=== PATIENT | female | born 1960 | race Caucasian/White ===

== ENCOUNTER 2021-04-19 19:09 | Inpatient (IN) ==
[2021-04-19 20:52] LABS: ABS Lymphocytes 0.6 10^3/ul (1.0-4.8); ABS Monocytes 0.2 10^3/ul (0-0.8); ABS Neutrophils 3.5 10^3/ul (1.5-7.7); Eosinophil % 0.5 %; Hematocrit 29 % (35-47); Hemoglobin 9.5 g/dL (12.0-16.0); Lymphocyte % 12.9 %; Mean Corpuscular HGB Conc 33 g/dL (31-36); Mean Corpuscular Hemoglobin 36 pg (27-31); Mean Corpuscular Volume 109 fL (80-97); Mean Platelet Volume 8.9 fL (7.4-10.4); Platelet Count 128 10^3/uL (150-450); Red Blood Count 2.66 10^6 /uL (3.70-4.87); Red Cell Distribution Width 18 % (10-15); White Blood Count 4.3 10^3/uL (3.5-10.8)
[2021-04-19 21:00] LABS: Albumin 2.6 g/dL (3.2-5.2); Albumin/Globulin Ratio 1.6 (1-3); Calcium 7.7 mg/dL (8.6-10.3); EGFR African American 105.4 (>60); EGFR Non-African American 87.1 (>60); Globulin 1.6 g/dL (2-4); Total Bilirubin 0.5 mg/dL (0.2-1.0); Total Protein 4.2 g/dL (6.4-8.9)
[2021-04-19 21:38] LABS: TSH Ultra Thyroid Stim Horm 1.22 mcIU/mL (0.34-5.60)
[2021-04-19 21:41] LABS: Free T4 1.78 ng/dL (0.61-1.12)
[2021-04-19] MEDS ORDERED: Vancomycin 1,000 MG in NS 0.9% 250 ml 250 ML IVPB SCH (21:48)
[2021-04-19] MEDS: KCL 20 MEQ/100 ML IVPREMIX 20 MEQ/100 ML BAG IV SCH (22:09)
[2021-04-19] MEDS ORDERED: Cefepime 2 GM IV - ED ONCE IV ONE (23:00)
[2021-04-19] MEDS ORDERED: Vancomycin per Pharmacy 1 EA NOTE FOLLOW UP SCH (23:00)
[2021-04-19] MEDS ORDERED: Vancomycin 1,000 MG - ED ONCE IVPB ONE (23:00)
[2021-04-20] MEDS: oxyCODONE SR 15 mg TAB PO SCH ×4 (00:43→20:39)
[2021-04-20] MEDS: Enoxaparin 40 MG/0.4 ML SYR SUBCUT SCH ×2 (00:44→20:41)
[2021-04-20] MEDS: KCL 20 MEQ/100 ML IVPREMIX 20 MEQ/100 ML BAG IV SCH (03:25)
[2021-04-20 06:03] LABS: ABS Lymphocytes 0.8 10^3/ul (1.0-4.8); ABS Monocytes 0.4 10^3/ul (0-0.8); ABS Neutrophils 2.6 10^3/ul (1.5-7.7); Eosinophil % 0.7 %; Hematocrit 28 % (35-47); Hemoglobin 9.1 g/dL (12.0-16.0); Lymphocyte % 20.8 %; Mean Corpuscular HGB Conc 33 g/dL (31-36); Mean Corpuscular Hemoglobin 36 pg (27-31); Mean Corpuscular Volume 109 fL (80-97); Mean Platelet Volume 8.7 fL (7.4-10.4); Platelet Count 115 10^3/uL (150-450); Red Blood Count 2.52 10^6 /uL (3.70-4.87); Red Cell Distribution Width 18 % (10-15)
[2021-04-20 06:17] LABS: Calcium 7.5 mg/dL (8.6-10.3); EGFR Non-African American 90.1 (>60); Potassium 3.6 mmol/L (3.5-5.0)
[2021-04-20 08:09] LABS: C Reactive Protein 26.9 mg/L (<8.01)
[2021-04-20] MEDS: DULoxetine DR 30 mg CAP PO SCH (10:36)
[2021-04-20] MEDS: buPROPion SR 100 mg TAB.SR PO SCH (10:37)
[2021-04-20] MEDS: Voriconazole 50 mg TAB (NF) PO SCH ×2 (10:37→20:39)
[2021-04-20] MEDS: Cefepime 2 GM in Dextrose 2 GM/50 ML BAG IV SCH (11:36)
[2021-04-20] MEDS: Vancomycin 1000 MG in NS 0.9% 250 ML IVPB SCH (15:24)
[2021-04-20 15:51] LABS: INR 1.05 (0.86-1.15)
[2021-04-20] MEDS ORDERED: Prochlorperazine 5 mg/ml 2 ml VIAL (10 mg) IV PRN (21:17)
[2021-04-21] MEDS: Cefepime 2 GM in Dextrose 2 GM/50 ML BAG IV SCH ×2 (00:03→11:26)
[2021-04-21] MEDS: Vancomycin 1000 MG in NS 0.9% 250 ML IVPB SCH ×2 (01:49→15:51)
[2021-04-21 04:33] LABS: Hematocrit 26 % (35-47); Hemoglobin 8.4 g/dL (12.0-16.0); Mean Corpuscular HGB Conc 33 g/dL (31-36); Mean Corpuscular Hemoglobin 36 pg (27-31); Mean Corpuscular Volume 109 fL (80-97); Mean Platelet Volume 8.8 fL (7.4-10.4); Platelet Count 106 10^3/uL (150-450); Red Blood Count 2.35 10^6 /uL (3.70-4.87); Red Cell Distribution Width 18 % (10-15)
[2021-04-21 04:46] LABS: Albumin 2.3 g/dL (3.2-5.2); Albumin/Globulin Ratio 1.5 (1-3); Calcium 7.6 mg/dL (8.6-10.3); EGFR African American 86.3 (>60); EGFR Non-African American 71.4 (>60); Globulin 1.5 g/dL (2-4); Potassium 3.1 mmol/L (3.5-5.0); Total Bilirubin 0.4 mg/dL (0.2-1.0); Total Protein 3.8 g/dL (6.4-8.9)
[2021-04-21] MEDS: oxyCODONE SR 15 mg TAB PO SCH ×3 (07:57→22:23)
[2021-04-21] MEDS: buPROPion SR 100 mg TAB.SR PO SCH (07:57)
[2021-04-21] MEDS: Voriconazole 50 mg TAB (NF) PO SCH ×2 (07:57→22:23)
[2021-04-21] MEDS: DULoxetine DR 30 mg CAP PO SCH (07:57)
[2021-04-21 08:20] LABS: Magnesium 1.9 mg/dL (1.9-2.7)
[2021-04-21] MEDS: Potassium Chlor 20 meq TAB.ER PO SCH ×2 (11:37→22:23)
[2021-04-21] MEDS ORDERED: Vancomycin Trough Check NOTE FOLLOW UP ONE (13:30)
[2021-04-21] MEDS ORDERED: NS 0.9% 500 ml BAG 500 ML IV SCH (18:00)
[2021-04-21] MEDS: Enoxaparin 40 MG/0.4 ML SYR SUBCUT SCH (22:24)
[2021-04-22 06:25] LABS: Hematocrit 28 % (35-47); Mean Corpuscular HGB Conc 33 g/dL (31-36); Mean Corpuscular Hemoglobin 36 pg (27-31); Mean Corpuscular Volume 111 fL (80-97); Mean Platelet Volume 9.1 fL (7.4-10.4); Platelet Count 101 10^3/uL (150-450); Red Cell Distribution Width 18 % (10-15); White Blood Count 3.3 10^3/uL (3.5-10.8)
[2021-04-22 06:36] LABS: EGFR African American 98.7 (>60); EGFR Non-African American 81.6 (>60); Potassium 3.4 mmol/L (3.5-5.0)
[2021-04-22] MEDS: Voriconazole 50 mg TAB (NF) PO SCH (08:01)
[2021-04-22] MEDS: Potassium Chlor 20 meq TAB.ER PO SCH (08:02)
[2021-04-22] MEDS: buPROPion SR 100 mg TAB.SR PO SCH (08:02)
[2021-04-22] MEDS: DULoxetine DR 30 mg CAP PO SCH (08:02)
[2021-04-22] MEDS: oxyCODONE SR 15 mg TAB PO SCH (08:02)
[2021-04-22 09:38] LABS: Magnesium 1.7 mg/dL (1.9-2.7)
[2021-04-22 11:44] VITALS: BP 116/75
== END 2021-04-22 13:40 | disposition home or self-care (01) | DRG 603 ==
LOC: MED 19:09 → ED 19:09 → SUATTDRO 21:08
PROVIDERS: ADMIT Hospitalist; ATTEND Internal Medicine